=== PATIENT | female | born 1995 | race Two or more races ===

== ENCOUNTER 2016-11-15 11:01 | Emergency (ER) | payer MEDICAID ==
[2016-11-15 11:22] VITALS: BP 111/74; PULSE 74; RESP 16; TEMP 98.6; O2SAT 96
--- NOTE | 2016-11-15 12:50 | UCPHY ---
H & P Time Seen by Provider: 11/15/16 12:17 Patient Type: Established HPI/ROS: HPI: 21-year-old female presents to urgent care with chief concern cough, nasal congestion. Symptoms onset approximately 2 weeks ago. She denies fever, chills, shortness of breath, chest pain, abdominal pain, nausea, vomiting, diarrhea, rash. No aggravating or alleviating factors. Symptoms have improved over the past 2 weeks. She has no history of asthma or pneumonia. She requests a test. ROS:10 point review of systems is negative other than as stated in HPI Smoking Status: Never smoked Physical Exam: Vital signs stable, reviewed by me General: Awake, alert, calm, cooperative. No acute distress. Head: Atraumatic. EENT: Conjuctiva mildly injected. TMs intact, without redness or bulging. Nasal mucosa is erythematous with moderate clear discharge. Pharynx mildly erythematous. Uvula midline. No tonsillar abscess or exudates. No frontal or maxillary tenderness to percussion. Respiratory: Breathing unlabored. Lungs clear to auscultation bilaterally. No accessory muscle use. CV: Heart rate regular. S1-S2 present. No murmur. GI: Abdomen soft, nontender. Bowel sounds positive x4 quadrants. : Deferred Skin: Warm, dry, intact. No rashes present. Capillary refill brisk. Musculoskeletal: Full ROM all extremities. Neuro: Alert oriented x3. Strength equal in all 4 extremities. Constitutional: Initial Vital Signs Temperature (C) 37 C 11/15/16 11:16 Heart Rate 74 11/15/16 11:16 Respiratory Rate 16 11/15/16 11:16 Blood Pressure 111/74 11/15/16 11:16 O2 Sat (%) 96 11/15/16 11:16 O2 Delivery Mode Room Air Allergies/Adverse Reactions: No Known Allergies Allergy (Verified 06/30/16 19:52) Home Medications: Medication Instructions Recorded NK [No Known Home Meds] 11/15/16 Medical Decision Making ED Course/Re-evaluation: Influenza negative. Child has tested positive for the flu. She is afebrile, nontoxic, lungs are clear to auscultation bilaterally. Have advised follow-up. Differential Diagnosis: Differential diagnosis includes but is not limited to viral upper respiratory infection, influenza, pneumonia, sinusitis - Data Points Laboratory Results: 11/15/16 11/15/16 13:30 11:35 Urine Test NEGATIVE Influenza Typ A,B (DFA) NEGATIVE FOR FLU (NEGATIVE) Departure - Departure Disposition: Home, Routine, Self-Care Clinical Impression: Upper respiratory infection Condition: Good Instructions: Upper Respiratory Infection (ED) Additional Instructions: Plan: You are not Drink plenty of fluids. Rest. You may use over the counter cough and cold medicine for symptom relief. You may use Tylenol or Ibuprofen for fever and pain control. Use saline spray or saline irrigation to each nostril twice daily-morning and evening. For sore throat, gargle with warm salt water three times daily. Return to Urgent Care or ER if you develop chest pain, difficulty breathing, or difficulty swallowing. Follow up with primary care next week--tell the office you are an "ER follow up appointment when you call. Return here promptly for worsening symptoms such as facial/tooth pain, chest pain, shortness of breath, unremitting fever, nausea, vomiting, difficulty swallowing. Referrals: NONE *PRIMARY CARE P,. [Primary Care Provider] - As per Instructions Deborah Stout, RN, ROLL UP MACHINE OPERATOR [Certified Nurse Practioner] - As per Instructions - PQRS PQRS Measurement: Not applicable
== END 2016-11-15 14:30 | disposition home or self-care (01) ==
LOC: CED 11:01
DX: J06.9 Acute upper respiratory infection, unspecified (principal)
CPT/HCPCS: 81025-PO; 87400-PO; 99214-PO; G0463-PO

== ENCOUNTER 2017-07-26 11:00 | Emergency (ER) | payer MEDICAID ==
[2017-07-26 11:12] VITALS: BP 109/79; PULSE 92; RESP 18; TEMP 97.7; O2SAT 93
--- NOTE | 2017-07-26 11:19 | EDPHY ---
H & P Time Seen by Provider: 07/26/17 11:13 HPI/ROS: CHIEF COMPLAINT: Left arm insect bite/sting HISTORY OF PRESENT ILLNESS: The patient is a 21-year-old female who presents to the emergency department stating that she was stung by something 2 days ago. She felt a sting. It was a sudden sharp pain. She swatted at her arm but did not see what stung her. She now has redness and swelling in the medial aspect of her left upper arm. The redness is improving. She still was moderate discomfort. It is worse when she has her arm down rather than up. She denies any shortness of breath. No systemic rash. No throat swelling. Patient denies fevers or chills. No numbness or tingling. REVIEW OF SYSTEMS: My complete review of systems is negative except as mentioned in the HPI. Past Medical/Surgical History: Negative Past surgical history: Negative Smoking Status: Never smoked Physical Exam: General Appearance: Alert and no distress. Head: Pupils equal. Normal. Respiratory: No respiratory distress. Cardiac: regular rate and rhythm. Extremities: the patient has mild swelling on the medial aspect of her left upper arm. There is minimal induration. There is no significant warmth. No adnexal lymphadenopathy. She is neurovascularly intact distally. Skin: No rashes or lesions. Neuro: Alert. Normal mood and affect. Constitutional: Initial Vital Signs Temperature (C) 36.5 C 07/26/17 11:10 Heart Rate 92 07/26/17 11:10 Respiratory Rate 18 07/26/17 11:10 Blood Pressure 109/79 07/26/17 11:10 O2 Sat (%) 93 07/26/17 11:10 O2 Delivery Mode Room Air Allergies/Adverse Reactions: No Known Allergies Allergy (Verified 07/26/17 11:09) Home Medications: Medication Instructions Recorded Cephalexin [Keflex (*)] 500 mg PO QID 5 Days cap 07/26/17 Medical Decision Making ED Course/Re-evaluation: In the emergency department I discussed possible etiologies with the patient. I answered all her questions. Patient did not see her insect sting. Although she does feel the redness is getting better cannot be 100% sure that this is not an underlying infection. I discussed this with the patient. She would feel more comfortable receiving antibiotics. She is given Keflex for 5 days. She was given warnings prior to leaving. She will return with worsening symptoms. Differential Diagnosis: My differential includes but is not limited to cellulitis, insect bite, abscess , allergic reaction Departure - Departure Disposition: Home, Routine, Self-Care Clinical Impression: Insect sting Qualifiers: Encounter type: initial encounter Injury intent: accidental or unintentional Qualified Code(s): T63.481A - Toxic effect of venom of other arthropod, accidental (unintentional), initial encounter Condition: Good Instructions: Insect Bite or Sting (ED) Additional Instructions: Return with increasing redness, pain, swelling or any other concerns. Keep your arm elevated as much as possible. Referrals: Deborah Stout RN, ENGLISH [employer]AC[employer] MEMBER [Primary Care Provider] - As per Instructions Prescriptions: Cephalexin [Keflex (*)] 500 mg PO QID 5 Days cap
== END 2017-07-26 11:46 | disposition home or self-care (01) ==
LOC: CED 11:00
DX: T63.481A Toxic effect of venom of other arthropod, accidental (unintentional), initial encounter (principal)

== ENCOUNTER 2018-03-23 18:00 | Emergency (ER) | payer MEDICAID ==
[2018-03-23] MEDS ORDERED: NS 1,000 ML IV ONE (18:21)
[2018-03-23] MEDS ORDERED: ACETAMINOPHEN 500 MG TAB PO ONE (18:23)
[2018-03-23] MEDS ORDERED: KETOROLAC 30 MG/1 ML SDV IVP ONE (18:23)
[2018-03-23 18:34] LABS: PLATELET COUNT 252 10^3/uL (150-400)
[2018-03-23 18:52] LABS: CREATINE KINASE 231 IU/L (0-156)
--- NOTE | 2018-03-23 19:10 | EDPHY ---
H & P Stated Complaint: bilateral leg pain started on thursday, no known trauma/injury Time Seen by Provider: 03/23/18 18:10 HPI/ROS: 22-year-old female presents complaining of bilateral leg pain for approximately 4 days, she states her entire legs on both sides have been cramping often worse at nighttime. She initially could not recall anything in particular that she might have done however later she recalled that she had gone to a graduation wearing high heels and had walked up many many stairs. She denies any specific injury, she denies fevers or chills. No recent illnesses. No history of blood clots Review of systems General no fever no chills no weakness HEENT no eye pain no eye discharge. No eye redness, no sore throat Respiratory no cough, no shortness of breath Cardiac no chest pain, no peripheral edema GI no abdominal pain, no diarrhea, no constipation, no nausea, no vomiting no flank pain, no hematuria, no dysuria Musculoskeletal positive myalgias, no joint pain Heme no easy bruising, no easy bleeding Endo no polyuria, no polydipsia Skin no rashes, no pruritus Neuro no syncope, no dizziness, no headaches Psych is no suicidal ideation, no homicidal ideation Source: Patient Exam Limitations: No limitations - Personal History LMP (Females 10-55): 15-21 Days Ago - Medical/Surgical History Hx Asthma: No Hx Chronic Respiratory Disease: No Hx Diabetes: No Hx Cardiac Disease: No Hx Renal Disease: No Hx Cirrhosis: No Hx Alcoholism: No Hx HIV/AIDS: No Hx Splenectomy or Spleen Trauma: No Other PMH: denies - Family History Significant Family History: No pertinent family hx - Social History Smoking Status: Never smoked Alcohol Use: None Drug Use: None - Physical Exam Exam: 22-year-old female alert and oriented no acute distress nontoxic appearance, afebrile HEENT atraumatic normocephalic, extraocular muscles intact, anicteric Oropharynx negative for erythema negative exudate, tolerating her own secretions Neck supple no meningismus Lungs clear to auscultation bilaterally Heart regular rate and rhythm without murmur rub or gallop Abdomen nondistended normoactive bowel sounds soft nontender Back no CVA tenderness, no step-offs, no spinal tenderness Extremities no cyanosis clubbing or edema No tenderness to palpation, no rash , no swelling Full range of motion at hips, knees, ankles, toes Normal gait Neuro alert and oriented, no focal deficits Constitutional: Initial Vital Signs Temperature (C) 37.3 C 03/23/18 18:10 Heart Rate 93 03/23/18 18:10 Respiratory Rate 18 03/23/18 18:10 Blood Pressure 128/77 H 03/23/18 18:10 O2 Sat (%) 96 03/23/18 18:10 O2 Delivery Mode Room Air Allergies/Adverse Reactions: No Known Allergies Allergy (Verified 03/23/18 18:10) Home Medications: Medication Instructions Recorded NK [No Known Home Meds] 03/23/18 Medical Decision Making ED Course/Re-evaluation: Patient seen and evaluated for bilateral leg pain. Exam unremarkable Labs CBC with a normal white blood cell count, no signs of infection CPK at the upper end of normal CMP within normal limits Normal potassium, normal magnesium D-dimer negative Patient given 1 L IV normal saline, Toradol 30 mg IV push Patient with marked relief of pain. Impression Bilateral leg cramps, consistent with muscle cramps Plan Encourage fluids Encourage increased salt intake this week Avoid uncomfortable she use Follow-up with primary care physician Return if worsening pain associated with, fever or shortness of breath. Differential Diagnosis: Differential diagnosis considered but not limited to and in no particular or: Leg cramps, hypokalemia, hyperkalemia, hypomagnesemia, hypermagnesemia, rhabdomyolysis, deep vein thrombosis - Data Points Laboratory Results: Laboratory Results 03/23/18 18:30 03/23/18 18:30 03/23/18 03/23/18 03/23/18 18:30 18:30 18:30 WBC 8.36 10^3/uL 10^3/uL (3.80-9.50) RBC 5.17 10^6/uL 10^6/uL (4.18-5.33) Hgb 14.5 g/dL g/dL (12.6-16.3) Hct 43.9 % % (38.0-47.0) MCV 84.9 fL fL (81.5-99.8) MCH 28.0 pg pg (27.9-34.1) MCHC 33.0 g/dL g/dL (32.4-36.7) RDW 13.1 % % (11.5-15.2) Plt Count 252 10^3/uL 10^3/uL (150-400) MPV 10.0 fL fL (8.7-11.7) Neut % (Auto) 53.1 % % (39.3-74.2) Lymph % (Auto) 36.7 % % (15.0-45.0) [place] % (Auto) 6.7 % % (4.5-13.0) Eos % (Auto) 2.8 % % (0.6-7.6) Baso % (Auto) 0.5 % % (0.3-1.7) Nucleat RBC Rel Count 0.0 % % (0.0-0.2) Absolute Neuts (auto) 4.44 10^3/uL 10^3/uL (1.70-6.50) Absolute Lymphs (auto) 3.07 10^3/uL H 10^3/uL (1.00-3.00) Absolute Monos (auto) 0.56 10^3/uL 10^3/uL (0.30-0.80) Absolute Eos (auto) 0.23 10^3/uL 10^3/uL (0.03-0.40) Absolute Basos (auto) 0.04 10^3/uL 10^3/uL (0.02-0.10) Absolute Nucleated RBC 0.00 10^3/uL 10^3/uL (0-0.01) Immature Gran % 0.2 % % (0.0-1.1) Immature Gran # 0.02 10^3/uL 10^3/uL (0.00-0.10) D-Dimer < 0.27 ug/mLFEU ug/mLFEU (0.00-0.50) Sodium 141 mEq/L mEq/L (135-145) Potassium 3.5 mEq/L mEq/L (3.3-5.0) Chloride 104 mEq/L mEq/L (97-110) Carbon Dioxide 24 mEq/l mEq/l (22-31) Anion Gap 13 mEq/L mEq/L (8-16) BUN 15 mg/dL mg/dL (7-23) Creatinine 0.7 mg/dL mg/dL (0.6-1.0) Estimated GFR > 60 Glucose 104 mg/dL H mg/dL (70-100) Calcium 9.3 mg/dL mg/dL (8.5-10.4) Magnesium 2.0 mg/dL mg/dL (1.6-2.3) Total Bilirubin 0.4 mg/dL mg/dL (0.1-1.4) AST 22 IU/L IU/L (14-46) ALT 34 IU/L IU/L (9-52) Alkaline Phosphatase 84 IU/L IU/L (38-126) Creatine Kinase 231 IU/L H IU/L (0-156) CK-MB (CK-2) Fraction 0.44 ng/mL ng/mL (0.00-4.55) CK-MB (CK-2) % 0.2 % % (0.0-4.0) Creatine Kinase Interp NEGATIVE (NEGATIVE) Total Protein 7.2 g/dL g/dL (6.3-8.2) Albumin 3.9 g/dL g/dL (3.5-5.0) Medications Given: Discontinued Medications Acetaminophen (Tylenol) 1,000 mg PO EDNOW ONE Stop: 03/23/18 18:24 Last Admin: 03/23/18 18:37 Dose: 1,000 mg Sodium Chloride (Ns) 1,000 mls @ 0 mls/hr IV ONCE ONE PRN Reason: Wide Open Stop: 03/23/18 18:22 Last Admin: 03/23/18 18:37 Dose: 1,000 mls Ketorolac Tromethamine (Toradol) 30 mg IVP EDNOW ONE Stop: 03/23/18 18:24 Last Admin: 03/23/18 18:37 Dose: 30 mg Departure - Departure Disposition: Home, Routine, Self-Care Clinical Impression: Bilateral leg cramps Condition: Good Instructions: Leg Cramps (ED) Additional Instructions: Follow-up with the primary care physician if you're cramps continue. Referrals: [facility] [Other] - As per Instructions
[2018-03-23 19:25] VITALS: BP 122/75
== END 2018-03-23 19:23 | disposition home or self-care (01) ==
LOC: CED 18:00
DX: R25.2 Cramp and spasm (principal)
CPT/HCPCS: 80053-PO; 82550-PO; 82553-PO; 83735-PO; 85025-PO; 85378-PO; 96374; J1885